=== PATIENT | female | born 1950 | race Caucasian/White ===

== ENCOUNTER → 2017-02-21 15:26 | Emergency (ER) | payer MEDICARE, MEDICAID ==
[2017-02-21 17:06] LABS: Hematocrit 38 % (35-47); Hemoglobin 12.6 g/dl (12.0-16.0); Mean Corpuscular HGB Conc 33 g/dl (31-36); Mean Corpuscular Hemoglobin 30 pg (27-31); Mean Corpuscular Volume 90 fL (80-97); Mean Platelet Volume 9 um3 (7.4-10.4); Red Blood Count 4.17 10^6/ul (4.0-5.4); Red Cell Distribution Width 14 % (10.5-15); White Blood Count 8.4 10^3/ul (3.5-10.8)
[2017-02-21 17:22] LABS: Albumin 4.2 g/dL (3.2-5.2); BUN/Creatinine Ratio 13.6 (8-20); Calcium 9.4 mg/dL (8.6-10.3); EGFR African American 48.2 (>60); EGFR Non-African American 37.5 (>60); Globulin 3.4 g/dL (2-4); Potassium 3.4 mmol/L (3.5-5.0); Total Bilirubin 0.6 mg/dL (0.2-1.0); Total Protein 7.6 g/dL (6.4-8.9)
--- NOTE | 2017-02-21 17:23 | RAD ---
INDICATION: Shortness of breath. COMPARISON: Comparison is made with a prior chest x-ray study from July 27, 2015. TECHNIQUE: Dual-energy PA and lateral views of the chest were obtained. FINDINGS: The heart is within normal limits in size. Mediastinal and hilar contours appear within normal limits. The lungs are underinflated and clear. No pleural effusion is seen. IMPRESSION: NO EVIDENCE FOR ACTIVE CARDIOPULMONARY DISEASE.
--- NOTE | 2017-02-21 18:56 | ED ---
Cal Govea Billy, scribed for Garrett Stanley MD on 02/21/17 at 1640 . Shortness of Breath - HPI Summary HPI Summary: Patient is a 66 year-old female coming to [facility] for evaluation of shortness of breath. She states that she has chronic shortness of breath, but it has been much worse in the last 2 days. The symptoms are worse with recumbent position. Patient does not report any other symptoms or complaints. - History of Current Complaint Chief Complaint: EDShortnessOfBreath Time Seen by Provider: 02/21/17 16:19 Hx Obtained From: Patient Onset/Duration: Gradual Onset, Worse Since - last 2 days Timing: Constant Current Severity: Moderate Dyspnea At: Rest Aggrevating Factors: Recumbent Position Alleviating Factors: Upright Position - Allergy/Home Medications Allergies/Adverse Reactions: Allergies Allergy/AdvReac Type Severity Reaction Status Date / Time Codeine Allergy Severe DIZZY, GI Verified 02/21/17 16:16 UPSET Iodinated Diagnostic Agents Allergy Mild Itching Verified 02/21/17 16:16 PMH/Surg Hx/FS Hx/Imm Hx Endocrine/Hematology History: Reports: Hx Diabetes - type 2, Hx Anemia - UNDER THE CARE OF DR. REDMOND- ON MEDICATION FOR Cardiovascular History: Reports: Hx Hypertension Denies: Hx Pacemaker/ICD Respiratory History: Denies: Hx Asthma GI History: Reports: Hx Gastroesophageal Reflux Disease - ON MEDICATION FOR History: Reports: Other Problems/Disorders - HAS STOPPED DICLOFENAC- TO SEE DR. MONTEMAYOR 10/12- PROBLEM IS UNKNOWN TO PT. Musculoskeletal History: Reports: Hx Arthritis - "ALL OVER", Other Musculoskeletal History - SPINAL STENOSIS Sensory History: Reports: Hx Contacts or Glasses - READING Denies: Hx Hearing Aid Opthamlomology History: Reports: Hx Contacts or Glasses - READING Psychiatric History: Denies: Hx Panic Disorder - Cancer History Hx Chemotherapy: No Hx Radiation Therapy: No - Surgical History Surgery Procedure, Year, and Place: CARPAL TUNNEL RT WRIST,RT KNEE REPLACEMENT Hx Anesthesia Reactions: No Infectious Disease History: No Infectious Disease History: Denies: Traveled Outside the [place] in Last 30 Days - Family History Known Family History: Positive: Diabetes, Other - Cancer - Social History Alcohol Use: None Substance Use Type: Reports: None Smoking Status (MU): Never Smoked Tobacco Amount Used/How Often: A TEEN Review of Systems Negative: Fever Positive: Shortness Of Breath All Other Systems Reviewed And Are Negative: Yes Physical Exam Triage Information Reviewed: Yes Vital Signs On Initial Exam: Initial Vitals Temp Pulse Resp BP Pulse Ox 98.2 F 114 20 185/89 99 02/21/17 15:31 02/21/17 15:31 02/21/17 15:31 02/21/17 15:31 02/21/17 15:31 Vital Signs Reviewed: Yes Appearance: Positive: Well-Appearing, No Pain Distress Skin: Positive: Warm, Skin Color Reflects Adequate Perfusion, Dry Head/Face: Positive: Normal Head/Face Inspection Eyes: Positive: Normal ENT: Positive: Normal ENT inspection Neck: Positive: Supple, Nontender Respiratory/Lung Sounds: Positive: Clear to Auscultation, Breath Sounds Present Cardiovascular: Positive: RRR, Other - Gallops heard on auscultation. Abdomen Description: Positive: Nontender, Soft Musculoskeletal: Positive: Normal Neurological: Positive: Normal, Sensory/Motor Intact, Alert, Oriented to Person Place, Time Psychiatric: Positive: Affect/Mood Appropriate Diagnostics - Vital Signs Vital Signs Temp Pulse Resp BP Pulse Ox 02/21/17 16:14 98.2 F 114 20 185/89 99 02/21/17 15:31 98.2 F 114 20 185/89 99 - Laboratory Lab Results: Lab Results 02/21/17 02/21/17 02/21/17 Range/Units 16:50 16:50 16:50 WBC 8.4 (3.5-10.8) 10^3/ul RBC 4.17 (4.0-5.4) 10^6/ul Hgb 12.6 (12.0-16.0) g/dl Hct 38 (35-47) % MCV 90 (80-97) fL MCH 30 (27-31) pg MCHC 33 (31-36) g/dl RDW 14 (10.5-15) % Plt Count 181 (150-450) 10^3/ul MPV 9 (7.4-10.4) um3 Neut % (Auto) 68.5 (38-83) % Lymph % (Auto) 19.9 L (25-47) % Desha % (Auto) 10.0 H (1-9) % Eos % (Auto) 1.1 (0-6) % Baso % (Auto) 0.5 (0-2) % Absolute Neuts (auto) 5.8 (1.5-7.7) 10^3/ul Absolute Lymphs (auto) 1.7 (1.0-4.8) 10^3/ul Absolute Monos (auto) 0.8 (0-0.8) 10^3/ul Absolute Eos (auto) 0.1 (0-0.6) 10^3/ul Absolute Basos (auto) 0 (0-0.2) 10^3/ul Absolute Nucleated RBC 0.01 10^3/ul Nucleated RBC % 0.1 D-Dimer, Quantitative (Less Than 230) ng/mL Sodium 136 (133-145) mmol/L Potassium 3.4 L (3.5-5.0) mmol/L Chloride 98 L (101-111) mmol/L Carbon Dioxide 27 (22-32) mmol/L Anion Gap 11 (2-11) mmol/L BUN 19 (6-24) mg/dL Creatinine 1.40 H (0.51-0.95) mg/dL Est GFR ( Amer) 48.2 (>60) Est GFR (Non-Af Amer) 37.5 (>60) BUN/Creatinine Ratio 13.6 (8-20) Glucose 381 H (70-100) mg/dL Lactic Acid 2.9 H* (0.5-2.0) mmol/L Calcium 9.4 (8.6-10.3) mg/dL Total Bilirubin 0.60 (0.2-1.0) mg/dL AST 19 (13-39) U/L ALT 17 (7-52) U/L Alkaline Phosphatase 73 (34-104) U/L Troponin I 0.00 (<0.04) ng/mL Total Protein 7.6 (6.4-8.9) g/dL Albumin 4.2 (3.2-5.2) g/dL Globulin 3.4 (2-4) g/dL Albumin/Globulin Ratio 1.2 (1-3) // Range/Units 16:50 WBC (3.5-10.8) 10^3/ul RBC (4.0-5.4) 10^6/ul Hgb (12.0-16.0) g/dl Hct (35-47) % MCV (80-97) fL MCH (27-31) pg MCHC (31-36) g/dl RDW (10.5-15) % Plt Count (150-450) 10^3/ul MPV (7.4-10.4) um3 Neut % (Auto) (38-83) % Lymph % (Auto) (25-47) % Desha % (Auto) (1-9) % Eos % (Auto) (0-6) % Baso % (Auto) (0-2) % Absolute Neuts (auto) (1.5-7.7) 10^3/ul Absolute Lymphs (auto) (1.0-4.8) 10^3/ul Absolute Monos (auto) (0-0.8) 10^3/ul Absolute Eos (auto) (0-0.6) 10^3/ul Absolute Basos (auto) (0-0.2) 10^3/ul Absolute Nucleated RBC 10^3/ul Nucleated RBC % D-Dimer, Quantitative 263 H (Less Than 230) ng/mL Sodium (133-145) mmol/L Potassium (3.5-5.0) mmol/L Chloride (101-111) mmol/L Carbon Dioxide (22-32) mmol/L Anion Gap (2-11) mmol/L BUN (6-24) mg/dL Creatinine (0.51-0.95) mg/dL Est GFR ( Amer) (>60) Est GFR (Non-Af Amer) (>60) BUN/Creatinine Ratio (8-20) Glucose (70-100) mg/dL Lactic Acid (0.5-2.0) mmol/L Calcium (8.6-10.3) mg/dL Total Bilirubin (0.2-1.0) mg/dL AST (13-39) U/L ALT (7-52) U/L Alkaline Phosphatase (34-104) U/L Troponin I (<0.04) ng/mL Total Protein (6.4-8.9) g/dL Albumin (3.2-5.2) g/dL Globulin (2-4) g/dL Albumin/Globulin Ratio (1-3) Result Diagrams: 02/21/17 16:50 02/21/17 16:50 Lab Statement: Any lab studies that have been ordered have been reviewed, and results considered in the medical decision making process. - Radiology CXR Xray Interpretation: No Acute Changes Radiology Interpretation Completed By: Radiologist - EKG 1539 EKG Interpretation: sinus tachycardia 106 bpm, no STEMI Course/Dx - Course Course Of Treatment: I have some concern for a PE and as she is allergic to contrast dye, we are awaiting VQ scan. - Diagnoses Provider Diagnoses: SOB (shortness of breath) - Physician Notifications Discussed Care of Patient With: Dr. Silvestre (radiology) at 1815: recommends VQ scan instead of a CTA chest to rule out PE since the patient is allergic to IV contrast dye. Discharge - Discharge Plan Condition: Stable Disposition: OTHER Discharge Disposition Comment: Dr. Tony at change of shift The documentation as recorded by the angieibCal lyman Billy accurately reflects the service I personally performed and the decisions made by me, Garrett Stanley MD.
--- NOTE | 2017-02-21 21:24 | RAD ---
INDICATION: Shortness of breath elevated d-dimer. COMPARISON: Comparison is made with a prior study from September 07, 2016. TECHNIQUE: Multiple real-time, color flow and Doppler tracings of both lower extremities were obtained. FINDINGS: The common femoral, femoral, profunda femoral and popliteal veins all demonstrate normal compressibility, augmentation with compression and phasic response with respiration. The posterior tibial and peroneal veins demonstrate normal compressibility and augmentation with compression. IMPRESSION: NO EVIDENCE FOR DEEP VENOUS THROMBOSIS.
[2017-02-21 22:41] VITALS: BP 184/84
== END ==
LOC: ED 15:26
DX: R06.02 Shortness of breath (principal)
CPT/HCPCS: 36415; 71020; 80053; 83605; 84484; 85025; 85379; 87040; 93005; 93970; 99284

== ENCOUNTER 2017-08-07 06:36 | Day surgery (SDC) | payer MEDICARE, MEDICAID ==
--- NOTE | 2017-08-01 20:36 | HP ---
PREOPERATIVE HISTORY AND PHYSICAL: DATE OF ADMISSION/SURGERY: 08/07/17 DATE OF OFFICE VISIT/ENCOUNTER: 07/30/17 ATTENDING SURGEON: Joyce William MD* (DICTATED BY ACE WALLS) PROCEDURE: Left thumb carpometacarpal arthroplasty. CHIEF COMPLAINT: Left thumb pain. HISTORY OF PRESENT ILLNESS: This is a 67-year-old female who complains of pain at the base of her left thumb that has been present for the past 6 months. She does not recall any injury, but the pain is gradually getting worse. She denies any associated numbness or tingling. X-rays revealed that she has severe degenerative arthritis of the CMC joint. She is interested in pursuing surgical intervention at this time and has consented to a left thumb carpometacarpal joint arthroplasty. PAST MEDICAL HISTORY: 1. Diabetes. 2. Hypertension. 3. Hypercholesterolemia. 4. Arthritis. 5. GERD. PAST SURGICAL HISTORY: 1. Low back surgery. 2. Right carpal tunnel release. 3. Right total knee arthroplasty. CURRENT MEDICATIONS: 1. Aspirin 81 mg daily. 2. Breo Ellipta 100/25 mcg/INH 1 puff inhaled daily. 3. Glipizide 10 mg 2 tabs twice a day. 4. Hydrochlorothiazide 25 mg daily. 5. Lovastatin 20 mg daily. 6. Magnesium 250 mg 2 tabs daily. 7. Metformin HCl 850 mg 3 times a day. 8. Multivitamin daily. 9. Omeprazole 20 mg daily. ALLERGIES: CODEINE causes nausea and vomiting. CONTRAST DYE causes hives. FAMILY MEDICAL HISTORY: Prostate cancer and diabetes. SOCIAL HISTORY: The patient is retired. She denies tobacco use, recreational drug use, and does not drink alcohol. REVIEW OF SYSTEMS: General: Negative for fevers, chills, or night sweats. No known anesthesia problems. HEENT: Negative for headache, lightheadedness, or syncopal episodes. Integumentary: Negative for abrasions, lesions, or open wounds. Cardiothoracic: Positive for hypertension, negative for chest pain, palpitations, or edema. Pulmonary: Negative for shortness of breath with exertion, chronic cough, COPD. GI: Negative for nausea, vomiting, diarrhea. Positive for GERD. : Negative for nocturia, urinary frequency, urgency, history of UTIs, or kidney problems. Musculoskeletal: Positive for current complaint and occasional low back pain. Neurological: Negative for paresthesias, numbness, history of seizure, stroke, or epilepsy. Endocrine: Positive for diabetes. Negative for thyroid issues. Hematologic: Negative for easy bruising, anemia, excessive bleeding, or history of DVT. Infectious Disease: Negative for history of MRSA, hepatitis C, or HIV. PHYSICAL EXAMINATION GENERAL: Well-developed, well-nourished, 67-year-old female in no acute distress. VITAL SIGNS: Height 5 feet 6 inches, weight 190 pounds. Blood pressure 146/96 , pulse rate 90. HEENT: Normocephalic, atraumatic. Pupils are equal, round, and reactive to light and accommodation. Extraocular movements are intact. NECK: Supple, no palpable lymph nodes. Throat is clear. PULMONARY: Lungs are clear to auscultation bilaterally. No wheezes, rales, or rhonchi. CARDIOVASCULAR: Regular rate and rhythm. S1, S2. No murmurs, rubs, or gallops. No edema. ABDOMEN: Positive bowel sounds, soft, nontender. NEUROLOGIC: Alert and oriented x3. Cranial nerves II through XII are intact. Sensation is intact to light touch. MUSCULOSKELETAL: On exam of her left hand, she has a prominence of her thumb CMC joint on the left. There is tenderness to palpation at the CMC joint. Positive grind test. She has decreased range of motion, especially in thumb flexion. She has good abduction and skin is intact. Neurovascular function is intact. DIAGNOSTIC STUDIES: X-rays, AP, lateral, and oblique of the left thumb, showed severe degenerative arthritis of the CMC joint. IMPRESSION: Left thumb carpometacarpal arthritis. PLAN: The patient is scheduled to undergo a left thumb carpometacarpal arthroplasty with Dr. William on 08/07/17. She will return to the office 10 to 14 days postop for followup and suture removal. A prescription for King was e - scribed to the patient's pharmacy for postoperative pain management. ACE WALLS [id number]/[facility] #: [id number] KAITLYNN
[~2017-08-07 06:36] MED LIST: Buffered Lidocaine 0.9% SYRIN* 5 ML/SYR SYRINGE INTRADERM ONE; Sodium Citrate/Citric Acid* 15 ML UDC PO ONE
[2017-08-07] MEDS ORDERED: ceFAZolin 2 GM PREMIX (*) 50 ML IVPB ONE (07:06)
[2017-08-07] MEDS ORDERED: Sodium Citrate/Citric Acid* 15 ML UDC ONE (07:11)
[2017-08-07] MEDS ORDERED: Lidocaine 0.5%* 50 ML SDV ONE (07:35)
[2017-08-07] MEDS ORDERED: Midazolam* 1 MG/ML 2 ML VIAL (2 MG) ONE ×2 (07:36→07:59)
[2017-08-07] MEDS ORDERED: Bupivacaine 0.5% SDV PF* 30 ML VIAL ONE (08:11)
[2017-08-07] MEDS ORDERED: Labetalol IV* 5 MG/ML 20 ML VIAL ONE (08:27)
[2017-08-07 09:15] VITALS: BP 189/90
--- NOTE | 2017-08-07 23:12 | OP ---
DATE OF OPERATION: 08/07/17 [facility] DATE OF : 48 SURGEON: Joyce William MD. RECREATION CLERK: ACE Oro ANESTHESIOLOGIST: Ruiz Chin DO ANESTHESIA: IV regional. PRE-OP DIAGNOSIS: Carpometacarpal arthritis of the left thumb. POST-OP DIAGNOSIS: Carpometacarpal arthritis of the left thumb. OPERATIVE PROCEDURE: Left thumb carpometacarpal arthroplasty. ESTIMATED BLOOD LOSS: Zero. TOURNIQUET TIME: 40 minutes. INDICATIONS FOR PROCEDURE: Nini is a 67-year-old female with pain at the base of her left thumb. X-ray shows a significant degenerative arthritis of the carpometacarpal joints. She presents for carpometacarpal arthroplasty of the left thumb. DESCRIPTION OF PROCEDURE: The patient was brought to the operating room, was given a sedation anesthetic and IV regional anesthetic with a tourniquet around her left forearm. Skin of her left hand and forearm was prepped and draped in the usual sterile fashion. The hand and forearm were exsanguinated prior to placement of the tourniquet for the anesthetic. An S-shaped incision was made centered at the CMC joint of the left thumb. We dissected bluntly through the subcutaneous tissue and branches of the radial sensory nerve were located and then retracted by the rn surgical pcu, Gretchen Barragan, whose services were essential for the completion of the case. The APL and EPB tendons were then retracted and a distally based U-shaped flap was created at the thumb CMC joint capsule. This was subperiosteally dissected off the trapezium and the metacarpal was then retracted. Radial artery was carefully dissected out and again retracted by the rn surgical pcu, Gretchen Barragan. The trapezium was removed in its entirety in piecemeal fashion and then the wound was irrigated. The CMC joint capsule was secured to the FCR tendon with 4-0 nylon suture, and this brought the thumb metacarpal out into good abduction. The remainder of the joint capsule was closed with 4-0 nylon suture. A tendon transfer of the EPB tendon to the APL tendon was made with 4-0 nylon suture and this was done to remove the extension effect at the MP joint as the patient had a slight amount of hyperextension. After this, the thumb MP joint sat in very nice position. The skin edges were reapproximated and the wound was dressed with Xeroform, 4x4, Webril, and a thumb spica splint with the metacarpal abducted and the MP joint flexed. The patient tolerated the procedure well and was brought to the recovery room in good condition. [id number]/[facility] #: [id number] MTDD
== END 2017-08-07 09:18 | disposition home or self-care (01) ==
LOC: OREAST 06:36
PROVIDERS: ATTEND Orthopaedic Surgery
DX: M18.12 Unilateral primary osteoarthritis of first carpometacarpal joint, left hand (principal); E11.9 Type 2 diabetes mellitus without complications; Z79.84 Long term (current) use of oral hypoglycemic drugs; I10 Essential (primary) hypertension; E78.00 Pure hypercholesterolemia, unspecified; K21.9 Gastro-esophageal reflux disease without esophagitis; Z88.5 Allergy status to narcotic agent; Z91.041 Radiographic dye allergy status
CPT/HCPCS: 88304; 88311; A9270-GY; J0690; J2250

== ENCOUNTER 2018-08-06 11:57 | Day surgery (SDC) | payer MEDICARE, MEDICAID ==
--- NOTE | 2018-08-05 11:58 | HP ---
HISTORY AND PHYSICAL: DATE OF ADMISSION: 08/06/18 She is coming into [facility] on 08/06/18 for left knee arthroscopic surgery. CHIEF COMPLAINT: Left medial knee pain with locking, catching, and clicking. HISTORY OF PRESENT ILLNESS: She has had problems with this knee for the last several months. A cortisone injection was temporarily helpful and problems returned. She has had an MRI scan showing a medial meniscal tearing and knee arthritis. We have recommended left knee arthroscopic surgery for the medial meniscal tear. PAST MEDICAL HISTORY: She has not had a heart attack. She does not have chest pain. She is able to walk up 2 flights of stairs without chest pain, without shortness of breath. Past medical history includes type 2 diabetes, ankylosing spondylitis. She has had sleep apnea and hand arthritis, spinal stenosis. PAST SURGICAL HISTORY: She has had surgical care of the right knee, total knee , low back, carpal tunnel in the left thumb, and she has not had problems with anesthesia. She has no past history of DVT or pulmonary embolism. MEDICATIONS: Daily medications include: 1. Glipizide 10 mg p.o. b.i.d. 2. Hydrochlorothiazide 25 mg each day. 3. Multivitamins one a day. 4. Lovastatin 20 mg each evening. 5. Ranitidine 20 mg each day. 6. Metformin 850 mg one by mouth 3 times a day. 7. Breo Ellipta 10-25 mcg inhaler one puff inhale daily. 8. Januvia 50 mg one tablet by mouth every morning. 9. Aspirin 81 mg one each day. 10. Lisinopril 2.5 mg each day. ALLERGIES: She is allergic only to CODEINE. SOCIAL HISTORY: She does not smoke. She does not drink. She has no bleeding tendency. She has not had any cancers. PHYSICAL EXAMINATION VITAL SIGNS: Pulse is 92, blood pressure 184/88. The pain is 8/10. HEENT: Head: NC/AT. Cranial nerves are grossly intact. LUNGS: Clear bilaterally. HEART: Regular. S1, S2 normal. She has a small systolic murmur. ABDOMEN: Soft, nontender. There is no organomegaly. EXTREMITIES: The left knee shows no tenderness anteriorly, laterally, and posteriorly. She is markedly tender on the medial joint line. The ligaments are stable. The knee alignment is satisfactory. The knee extension of 0, flexion 120. The thigh and calf are soft and nontender. NEUROVASCULAR: Foot is intact. DIAGNOSTIC STUDIES: The knee MRI scan showing arthritic change, medial and patellofemoral and medial meniscal tearing. IMPRESSION: Left knee medial meniscal tear. PLAN: Left knee arthroscopic surgery. Goals, risks, and complications have been reviewed with the patient in my office and her questions were answered. [id number]/[facility] #: [id number] MTDD
[~2018-08-06 11:57] MED LIST changes: -Sodium Citrate/Citric Acid* 15 ML UDC PO ONE
[2018-08-06] MEDS ORDERED: Buffered Lidocaine 0.9% SYRIN* 5 ML/SYR SYRINGE ONE (12:13)
[2018-08-06] MEDS ORDERED: ceFAZolin 2 GM in NS PREMIX(*) 2 GM/100 ML BAG IVPB ONE (12:13)
[2018-08-06] MEDS ORDERED: Bupivacaine 0.25% EPI 200,000* 30 ML SDV ONE (13:53)
[2018-08-06] MEDS ORDERED: Midazolam* 1 MG/ML 5 ML VIAL (5 MG) ONE (14:01)
[2018-08-06] MEDS ORDERED: fentaNYL* 50 MCG/ML 2 ML VIAL (100 MCG VIAL) ONE (14:09)
[2018-08-06] MEDS ORDERED: Dexamethasone IV* 4 MG/ML 1 ML (4 MG) ONE (14:25)
[2018-08-06] MEDS ORDERED: Naloxone* 0.4 MG/ML 1 ML VIAL IV PRN (14:37)
[2018-08-06] MEDS ORDERED: fentaNYL* 50 MCG/ML 2 ML VIAL (100 MCG VIAL) IV PRN (14:37)
[2018-08-06] MEDS ORDERED: HYDROcodone/ACETAMIN 5-325 MG* 1 TAB PO PRN (14:37)
[2018-08-06] MEDS ORDERED: oxyCODONE TAB* 5 MG TAB PO PRN (14:37)
[2018-08-06] MEDS ORDERED: Ondansetron INJ* 2 MG/ML VIAL IV PRN (14:37)
[2018-08-06] MEDS ORDERED: DiMENhydriNATE IV* 50 MG/ML VIAL IV PUSH PRN (14:37)
[2018-08-06 16:22] VITALS: BP 153/92
--- NOTE | 2018-08-07 09:56 | OP ---
DATE OF OPERATION: 08/06/18 - [facility] DATE OF : 48 SURGICAL CARE: Left knee. SURGEON: Gab German MD HAIRSPRING TRUING INSPECTOR: ACE Allen ANESTHESIOLOGIST: Dr. Jorgito Castro. ANESTHESIA: LMA general. PRE-OP DIAGNOSIS: Left knee medial meniscal tear. POST-OP DIAGNOSIS: Left knee medial meniscal tear and chondral flap tearing of the medial femoral condyle. OPERATIVE PROCEDURE: Left knee arthroscopic partial medial meniscectomy and chondroplasty of the medial femoral condyle. COMPLICATIONS: There were no complications. DRAINS: There were no drains. BLOOD LOSS: 50 mL. REPLACEMENT: Crystalloid fluids. OPERATIVE INDICATIONS: Severe and continuing left knee anteromedial pain. She has been nonresponsive to nonoperative care and a cortisone injection, and an MRI scan showing medial meniscal tearing. DESCRIPTION OF PROCEDURE: The patient was brought to the operating room and placed on the operating room table in the supine position. Following the administration of the anesthetic, the left lower extremity was wrapped with a proximal thigh tourniquet and then prepped from the tourniquet to the foot and draped free and carefully sealed off in the usual fashion for arthroscopic surgery of the knee. Leg, ankle, and foot portions were sealed off with an impermeable drape. We did our universal protocol time-out confirming Nini Rincon and a plan for left knee arthroscopic surgery. We all agreed and we proceeded. The leg was exsanguinated. The tourniquet elevated to 275. The knee was set up for arthroscopy with the arthroscope lateral to the patellar tendon, probe and operating instruments medial to the patellar tendon and an inflow catheter superomedial to the patella. The joint was irrigated and cleared quickly and the survey of the joint showed that the patellofemoral joint had some cartilage loss on the odd facet of the patella. Slight fibrinous exudate there that was shaved. There was some anterior synovitis. The medial and lateral gutters were clear with some degenerative changes on the medial and lateral femoral condyle. The lateral joint, lateral femoral condyle, lateral meniscus, popliteus, lateral tibial plateau in satisfactory condition. The ACL had some fissuring. The medial femoral condyle had loose cartilage on the margin going to the intercondylar notch that was shaved. The medial tibial plateau overall satisfactory condition. The medial meniscus was torn mid and posteriorly. Once this was evident, the knee was put on a valgus stress with some external rotation between 0 and 30 degrees of flexion and using baskets and shaver, the medial meniscus was removed from the level of the medial collateral ligament posteriorly taking care not to injure the adjacent condyle and plateau. The final photograph was obtained and once the surgical care was completed, the shaver was also put in from the anterolateral portal to make sure that the transition on the medial meniscus anterior to the MCL was smooth. The knee was irrigated with another 3 L of saline irrigation solution, then emptied, then instilled with Marcaine 0.25% with epinephrine 30 mL and the skin portals closed with interrupted 3-0 Surgipro and a dressing applied after washing and drying of Betadine soaked release and sterile gauze, sterile Webril , cryotherapy cuff, ABD pads, further Webril and an Jorge Luis bandage loosely applied. The patient was returned to the recovery room in stable and satisfactory condition having tolerated the procedure very well. [id number]/[facility] #: [id number] KAITLYNN
== END 2018-08-06 16:25 | disposition home or self-care (01) ==
LOC: OR 11:57
PROVIDERS: ATTEND Orthopaedic Surgery
DX: S83.222A Peripheral tear of medial meniscus, current injury, left knee, initial encounter (principal); M23.8X2 Other internal derangements of left knee; E11.8 Type 2 diabetes mellitus with unspecified complications; Z79.84 Long term (current) use of oral hypoglycemic drugs; M45.9 Ankylosing spondylitis of unspecified sites in spine; X58.XXXA Exposure to other specified factors, initial encounter; Y92.9 Unspecified place or not applicable; I10 Essential (primary) hypertension; G47.33 Obstructive sleep apnea (adult) (pediatric); M48.061 Spinal stenosis, lumbar region without neurogenic claudication
CPT/HCPCS: 88304; J0690; J1100; J2250; J3010

== ENCOUNTER 2021-10-03 05:55 | Observation (INO) ==
[2021-10-03] MEDS ORDERED: Lactated Ringers 1000 ml BAG 1,000 ML IV SCH ×2 (06:00→12:00)
[2021-10-03] MEDS ORDERED: Buffered Lidocaine 1% SYRIN 1 ml INTRADERM ONE (06:00)
[2021-10-03] MEDS ORDERED: ceFAZolin 2 GM PREMIX 2 GM/50 ML BAG ONE (06:36)
[2021-10-03] MEDS ORDERED: Lidocaine 2% PF 5 ML VIAL ONE (07:08)
[2021-10-03] MEDS ORDERED: Dexamethasone IV 4 MG/ML VIAL 1 ml VIAL ONE ×2 (07:08→07:14)
[2021-10-03] MEDS ORDERED: Midazolam 2 mg/2 ml VIAL 1 mg/ml 2 ml VIAL (2 mg) ONE (07:08)
[2021-10-03] MEDS ORDERED: Propofol 10 MG/ML 20 ML BTL ONE (07:08)
[2021-10-03] MEDS ORDERED: fentaNYL 250 mcg/5 ml 50 MCG/ML 5 ml VIAL (250 MCG) ONE (07:08)
[2021-10-03] MEDS ORDERED: Ondansetron 4 mg VIAL 2 MG/ML 2 ml VIAL ONE ×2 (07:08→07:37)
[2021-10-03] MEDS ORDERED: fentaNYL 100 mcg/2 ml 50 MCG/ML VIAL ONE (07:14)
[2021-10-03] MEDS ORDERED: Bupivacaine 0.5% SDV PF 30ML VIAL ONE (07:28)
[2021-10-03] MEDS ORDERED: Vancomycin 1,000 MG VIAL ONE (07:28)
[2021-10-03] MEDS ORDERED: ROPIVACAINE 5 MG/ML 30 ML BTL (0.5%) ONE (07:40)
[2021-10-03] MEDS ORDERED: Phenylephrine IV 10 MG/ML 1 ml VIAL ONE (08:20)
[2021-10-03] MEDS ORDERED: Rocuronium 50 mg VIAL 10 mg/ml 5 ml VIAL (50 mg) ONE (08:24)
[2021-10-03] MEDS ORDERED: Acetaminophen IV 1 GM/100ML 100 ML IV ONE ×2 (10:09→11:36)
[2021-10-03] MEDS ORDERED: HYDROmorphone 1 MG/1 ML SYRINGE IV PRN (10:09)
[2021-10-03] MEDS ORDERED: fentaNYL 100 mcg/2 ml 50 MCG/ML VIAL IV PRN (10:09)
[2021-10-03] MEDS ORDERED: DiMENhydriNATE IV 50 mg/ml 1 ml VIAL IV PUSH PRN (10:09)
[2021-10-03] MEDS ORDERED: Naloxone 0.4 mg VIAL 0.4 mg/ml 1 ml VIAL IV PRN (10:09)
[2021-10-03] MEDS ORDERED: Ondansetron 4 mg VIAL 2 MG/ML 2 ml VIAL IV PRN (10:09)
[2021-10-03] MEDS ORDERED: HYDROmorphone 0.5 MG/0.5 ML SYRINGE ONE (10:15)
[2021-10-03] MEDS ORDERED: Morphine 2 MG/ML SYRINGE IV PRN (11:21)
[2021-10-03] MEDS ORDERED: diPHENhydraMINE IV 50 MG/ML 1 ml VIAL (BENADRYL) IV PRN (11:21)
[2021-10-03] MEDS ORDERED: Ondansetron ODT 4 mg TAB 4 MG TAB PO PRN (11:21)
[2021-10-03] MEDS ORDERED: Magnesium Hydroxide LIQ 30 ML UDC PO PRN (11:21)
[2021-10-03] MEDS ORDERED: Lactulose 30 ml UDC PO PRN (11:21)
[2021-10-03] MEDS ORDERED: diPHENhydraMINE 25 mg TAB PO PRN (11:21)
[2021-10-03] MEDS ORDERED: SEMAGLUTIDE SUBCUT SCH (11:30)
[2021-10-03] MEDS ORDERED: INJECTOR SUBCUT SCH (11:30)
[2021-10-03] MEDS ORDERED: ceFAZolin 1 GM ADVAN 1 GM in NS 0.9% 50 ML 50 ML IVPB SCH (12:00)
[2021-10-03] MEDS: Ondansetron 4 mg VIAL 2 MG/ML 2 ml VIAL IV PRN (13:31)
[2021-10-03] MEDS ORDERED: Dextrose 50% Syringe 50 ml 25 GM/50 ML SYRINGE IV PUSH PRN (13:42)
[2021-10-03] MEDS: ceFAZolin 1 GM ADVAN 1 GM in NS 0.9% 50 ML 50 ML IVPB SCH (15:56)
[2021-10-03] MEDS: Magnesium Hydroxide LIQ 30 ML UDC PO SCH (21:26)
[2021-10-04 00:51] LABS: Urine Appearance Clear; Urine Bilirubin Negative (Negative); Urine Blood Negative (Negative); Urine Color Yellow; Urine Glucose 3+(>=500 mg/dL) (Negative); Urine Ketones 1+ (Negative); Urine Nitrite Negative (Negative); Urine Protein Negative (Negative); Urine Specific Gravity 1.018 (1.002-1.030); Urine Urobilinogen Negative (Negative)
[2021-10-04] MEDS: ceFAZolin 1 GM ADVAN 1 GM in NS 0.9% 50 ML 50 ML IVPB SCH ×2 (01:19→07:34)
[2021-10-04 05:58] LABS: Hematocrit 35 % (35-47); Hemoglobin 11.7 g/dL (12.0-16.0); Mean Platelet Volume 8.4 fL (7.4-10.4); Platelet Count 237 10^3/uL (150-450)
[2021-10-04 06:19] LABS: Calcium 9.2 mg/dL (8.6-10.3); Potassium 3.4 mmol/L (3.5-5.0); eGFR CKD-EPI 59.9 (>60)
[2021-10-04 07:43] VITALS: BP 121/63
[2021-10-04] MEDS: Ondansetron 4 mg VIAL 2 MG/ML 2 ml VIAL IV PRN (08:32)
[2021-10-04] MEDS: Magnesium Hydroxide LIQ 30 ML UDC PO SCH (08:59)
[2021-10-04] MEDS ORDERED: Aspirin EC 81 mg TAB.EC (enteric coated) PO SCH (09:00)
[2021-10-04] MEDS ORDERED: Vitamin THERAPEUTIC TAB PO SCH (09:00)
[2021-10-04] MEDS ORDERED: EMPAGLIFOZIN 10 MG PO SCH (09:00)
[2021-10-04] MEDS ORDERED: Flu vaccine *QUAD* 2021-22* 0.5 ML SYRINGE IM ONE (09:00)
[2021-10-04] MEDS ORDERED: Potassium Chlor 20 meq TAB.ER PO ONE (10:18)
== END 2021-10-04 12:50 | disposition home or self-care (01) ==
LOC: AA 05:55 → INTOOBSV 05:55 → SSU 13:04
PROVIDERS: ADMIT Orthopaedic Surgery; ATTEND Orthopaedic Surgery

== ENCOUNTER 2022-05-01 08:44 | Observation (INO) ==
[2022-05-01 09:03] LABS: ABS Basophils 0.1 10^3/ul (0-0.2); ABS Eosinophils 0.1 10^3/ul (0-0.6); ABS Monocytes 0.7 10^3/ul (0-0.8); ABS Neutrophils 6.5 10^3/ul (1.5-7.7); Eosinophil % 1.4 %; Hematocrit 40 % (35-47); Hemoglobin 13.4 g/dL (12.0-16.0); Lymphocyte % 21.3 %; Mean Corpuscular HGB Conc 33 g/dL (31-36); Mean Corpuscular Hemoglobin 31 pg (27-31); Mean Corpuscular Volume 91 fL (80-97); Mean Platelet Volume 8.1 fL (7.4-10.4); Platelet Count 226 10^3/uL (150-450); Red Blood Count 4.41 10^6 /uL (3.70-4.87); Red Cell Distribution Width 14 % (10-15); White Blood Count 9.4 10^3/uL (3.5-10.8)
[2022-05-01 09:09] LABS: INR 0.96 (0.86-1.15)
[2022-05-01 09:26] LABS: High Sens Troponin Baseline < 3 pg/mL (<15)
[2022-05-01 09:45] LABS: ALT 12 U/L (7-52); AST 15 U/L (13-39); Albumin 4.4 g/dL (3.2-5.2); Albumin/Globulin Ratio 1.8 (1-3); Alkaline Phosphatase 72 U/L (35-149); Anion Gap 11 mmol/L (2-11); Blood Urea Nitrogen 23 mg/dL (6-24); CO2 Carbon Dioxide 27 mmol/L (22-32); Calcium 9.7 mg/dL (8.6-10.3); Chloride 99 mmol/L (101-111); Globulin 2.5 g/dL (2-4); Glucose 162 mg/dL (70-100); Potassium 3.7 mmol/L (3.5-5.0); Sodium 137 mmol/L (135-145); Total Protein 6.9 g/dL (6.4-8.9); eGFR CKD-EPI 58.1 (>60)
[2022-05-01 10:29] LABS: High Sensitivity Troponin 1 Hr < 3 pg/mL (<15)
[2022-05-01] MEDS ORDERED: Al Hydrox/Mg Hydrox/Simet LIQ 30 ML UDC PO ONE (11:52)
[2022-05-01] MEDS ORDERED: Dextrose 50% Syringe 50 ml 25 GM/50 ML SYRINGE IV PUSH PRN (12:27)
[2022-05-01 13:15] LABS: Lipase 63 U/L (11.0-82.0)
[2022-05-01] MEDS: Enoxaparin 40 MG/0.4 ML SYR SUBCUT SCH (13:16)
[2022-05-02 06:00] LABS: Calcium 9.8 mg/dL (8.6-10.3); Magnesium 1.6 mg/dL (1.9-2.7); Potassium 4.1 mmol/L (3.5-5.0); eGFR CKD-EPI 68.4 (>60)
[2022-05-02] MEDS ORDERED: Regadenoson 0.4 MG/5 ML SYRINGE ONE (07:59)
[2022-05-02] MEDS ORDERED: Aminophylline 25 MG/ML VIAL ONE (07:59)
[2022-05-02] MEDS ORDERED: Magnesium Sulfate 2 gm BAG 2 GM/50 ML BAG IVPB ONE (08:01)
[2022-05-02] MEDS ORDERED: Aspirin EC 81 mg TAB.EC (enteric coated) PO SCH (09:00)
[2022-05-02] MEDS: Enoxaparin 40 MG/0.4 ML SYR SUBCUT SCH (12:21)
[2022-05-02 16:48] VITALS: BP 110/58
== END 2022-05-02 17:18 | disposition home or self-care (01) ==
LOC: ED 08:44 → EDHOLD 08:44 → MEDTELE 14:11
PROVIDERS: ADMIT Internal Medicine; ATTEND Internal Medicine

== ENCOUNTER 2024-01-05 09:49 | Observation (INO) ==
[2024-01-05 10:16] LABS: ABS Basophils 0.1 10^3/uL (0.0-0.1); ABS Eosinophils 0.2 10^3/uL (0.0-0.5); ABS Lymphocytes 2.2 10^3/uL (1.0-4.8); ABS Monocytes 0.7 10^3/uL (0.0-0.9); ABS Neutrophils 6.4 10^3/uL (1.5-7.6); ABS Nucleated RBC 0.01 10^3/ul; Hematocrit 36.9 % (35-45); Hemoglobin 11.7 g/dL (11.5-14.3); Lymphocyte % 23.4 %; Mean Corpuscular Hgb Conc 31.8 g/dL (31-36); Mean Platelet Volume 8.6 fL (7.5-11.2); Nucleated Red Blood Cells % 0.1 %/100WBC (0.0-0.8); Platelet Count 227 10^3/uL (150-450); Red Blood Count 4.34 10^6/uL (3.63-4.92); Red Cell Distribution Width 15.3 % (12-17); White Blood Count 9.5 10^3/uL (3.8-11.8)
[2024-01-05 10:18] LABS: INR 0.99 (0.83-1.13)
[2024-01-05 10:35] LABS: High Sens Troponin Baseline < 3 pg/mL (<15)
[2024-01-05 10:59] LABS: ALT 19 U/L (7-52); AST 19 U/L (13-39); Albumin 4.2 g/dL (3.2-5.2); Albumin/Globulin Ratio 1.6 (1-3); Alkaline Phosphatase 111 U/L (35-149); Anion Gap 13 mmol/L (2-16); Blood Urea Nitrogen 22 mg/dL (6-24); CO2 Carbon Dioxide 24 mmol/L (22-32); Calcium 9.4 mg/dL (8.6-10.3); Chloride 102 mmol/L (101-111); Creatinine, Serum 1.03 mg/dL (0.51-0.95); Globulin 2.6 g/dL (2-4); Glucose 232 mg/dL (70-100); Potassium 4.1 mmol/L (3.5-5.0); Sodium 139 mmol/L (135-145); Total Bilirubin 0.8 mg/dL (0.2-1.0); Total Protein 6.8 g/dL (6.4-8.9); eGFR CKD-EPI 57.1 (>60)
[2024-01-05 11:35] LABS: High Sensitivity Troponin 1 Hr < 3 pg/mL (<15)
[2024-01-05] MEDS ORDERED: Polyethylene Glycol 3350 17 GM PACKET PO PRN (13:24)
[2024-01-05] MEDS ORDERED: Al Hydrox/Mg Hydrox/Simet LIQ 30 ML UDC PO PRN (13:24)
[2024-01-05 14:08] LABS: TSH Ultra Thyroid Stim Horm 2.54 mcIU/mL (0.34-5.60)
[2024-01-05] MEDS ORDERED: Dextrose 50% Syringe 50 ml 25 GM/50 ML SYRINGE IV PUSH PRN (15:02)
[2024-01-05] MEDS: Enoxaparin 40 MG/0.4 ML SYR SUBCUT SCH (15:12)
[2024-01-07] MEDS ORDERED: Aminophylline 25 MG/ML VIAL ONE (08:37)
[2024-01-07] MEDS ORDERED: Regadenoson 0.4 MG/5 ML SYRINGE ONE (08:37)
[2024-01-07 13:43] VITALS: BP 106/64
== END 2024-01-07 14:30 | disposition short-term general hospital (02) ==
LOC: EDHOLD 09:49 → ED 09:49 → SUATTDRO 13:24 → MEDTELE 01-06 08:04
PROVIDERS: ADMIT Internal Medicine; ATTEND Hospitalist